=== PATIENT | female | born 1980 | race Hispanic/Latino ===

== ENCOUNTER 2017-11-30 10:18 | Emergency (ER) | payer MEDICAID ==
[~2017-11-30 10:18] MED LIST: BACL10TA PO; TRAM50TA4 PO
[2017-11-30] MEDS ORDERED: LIDOCAINE HCL 1% 20 ML VIAL ONE (10:53)
[2017-11-30] MEDS ORDERED: TETANUS/DIPHTHERIA TOXOID [ADULT] 0.5 ML VIAL IM ONE (11:58)
== END 2017-11-30 12:16 | disposition home or self-care (01) ==
LOC: EDH 10:18
DX: S61.512A Laceration without foreign body of left wrist, initial encounter (principal); Z72.0 Tobacco use; Z88.6 Allergy status to analgesic agent; Z98.890 Other specified postprocedural states; W26.8XXA Contact with other sharp object(s), not elsewhere classified, initial encounter; Y93.89 Activity, other specified; Y92.89 Other specified places as the place of occurrence of the external cause; Y99.8 Other external cause status
CPT/HCPCS: 12032; 12042; 73110; 90471; 90714

== ENCOUNTER 2019-05-15 19:00 | Observation (INO) | payer MEDICAID ==
[~2019-05-15] VITALS: Ht 165.1 cm; Wt 65.8 kg
[2019-05-15] MEDS ORDERED: LACTATED RINGERS 1000ML 1,000 ML IV PRN (19:30)
[2019-05-15 19:39] LABS: BILIRUBIN,URINE Negative (NEGATIVE); COLOR,URINE Dark Yellow (YELLOW); GLUCOSE, URINE (UA) Negative (NEGATIVE); KETONES,URINE Negative (NEGATIVE); LEUKOCYTE ESTERASE ,URINE Moderate (NEGATIVE); NITRATE,URINE Negative (NEGATIVE); OCCULT BLOOD,URINE Negative (NEGATIVE); PH,URINE 5.5 (5.0-8.0); PROTEIN,URINE Trace mg/dL (NEGATIVE)
[2019-05-15 19:46] LABS: APPEARANCE,URINE SLIGHTLY CLOUDY (CLEAR)
[2019-05-15 19:54] LABS: BACTERIA,URINE Few /HPF (None Seen); MUCUS,URINE Few LPF (None Seen); RBC,URINE 0-1 /HPF (0-1); SQUAMOUS EPITHELIAL CELL,UR Few /HPF (0-2)
[2019-05-15 20:05] VITALS: BP 104/70
[2019-05-15 22:13] LABS: AMPHET/METH SCREEN,URINE NEGATIVE (NEGATIVE); BARBITURATE SCREEN, URINE NEGATIVE (NEGATIVE); BENZODIAZEPINES SCREEN,URINE NEGATIVE (NEGATIVE); CANNABINOID SCREEN,URINE NEGATIVE (NEGATIVE); COCAINE SCREEN,URINE NEGATIVE (NEGATIVE); OPIATE SCREEN,URINE NEGATIVE (NEGATIVE); PHENCYCLIDINE SCREEN,URINE NEGATIVE (NEGATIVE)
== END 2019-05-16 09:50 | disposition home or self-care (01) ==
LOC: EDH 19:00 → LDH 19:26
PROVIDERS: ADMIT Obstetrics & Gynecology; ATTEND Obstetrics & Gynecology
DX: O26.893 Other specified pregnancy related conditions, third trimester (principal); R10.9 Unspecified abdominal pain; Z3A.34 34 weeks gestation of pregnancy; W18.30XA Fall on same level, unspecified, initial encounter; Y93.9 Activity, unspecified; Y92.9 Unspecified place or not applicable; Z88.6 Allergy status to analgesic agent
CPT/HCPCS: 76805; 80305; 81001; 99284; G0378 ×14; J7120 ×2; 96360; 96361

== ENCOUNTER 2019-06-14 22:25 | Observation (INO) | payer MEDICAID ==
[~2019-06-14] VITALS: Ht 165.1 cm; Wt 69.4 kg
[2019-06-14 23:03] LABS: APPEARANCE,URINE Cloudy (CLEAR); BILIRUBIN,URINE Small (NEGATIVE); COLOR,URINE Dark Yellow (YELLOW); GLUCOSE, URINE (UA) Negative (NEGATIVE); KETONES,URINE Negative (NEGATIVE); LEUKOCYTE ESTERASE ,URINE Small (NEGATIVE); NITRATE,URINE Negative (NEGATIVE); OCCULT BLOOD,URINE Negative (NEGATIVE); PH,URINE 5.5 (5.0-8.0); PROTEIN,URINE Trace mg/dL (NEGATIVE)
[2019-06-14 23:18] LABS: BACTERIA,URINE Few /HPF (None Seen); RBC,URINE 0-1 /HPF (0-1)
[2019-06-14 23:19] LABS: MUCUS,URINE Few LPF (None Seen); SQUAMOUS EPITHELIAL CELL,UR 0-2 /HPF (0-2)
[2019-06-14] MEDS ORDERED: LACTATED RINGERS 1000ML 1,000 ML IV PRN (23:43)
[2019-06-14] MEDS ORDERED: ACETAMINOPHEN-CODEINE 300/30MG TAB PO PRN (23:45)
[2019-06-14 23:46] VITALS: BP 130/83
[2019-06-15] MEDS: LACTATED RINGERS 1000ML IV PRN ×3 (00:02→06:51)
[2019-06-15] MEDS ORDERED: ACETAMINOPHEN-CODEINE 300/30MG TAB ONE (00:04)
[2019-06-15] MEDS ORDERED: AMPICILLIN 2GM+NS 100ML 100 ML IV ONE ×2 (00:52→01:00)
[2019-06-15] MEDS ORDERED: AMPICILLIN 1GM+NS 50ML 50 ML IV SCH (05:00)
[2019-06-19] MEDS ORDERED: [UNRECOGNIZED DRUG - CODE] PO (09:10)
[2019-06-19] MEDS ORDERED: TRAM100C3 PO (09:10)
== END 2019-06-15 11:05 | disposition home or self-care (01) ==
LOC: EDH 22:25 → LDH 22:26
PROVIDERS: ADMIT Obstetrics & Gynecology; ATTEND Obstetrics & Gynecology
DX: O62.9 Abnormality of forces of labor, unspecified (principal); O99.89 Other specified diseases and conditions complicating pregnancy, childbirth and the puerperium; M32.9 Systemic lupus erythematosus, unspecified; R53.82 Chronic fatigue, unspecified; Z88.6 Allergy status to analgesic agent; Z3A.38 38 weeks gestation of pregnancy
CPT/HCPCS: 76819; 81001; 96365; 96366; 99284; G0378 ×13; J0290 ×2; 96360; 96361

== ENCOUNTER 2019-06-19 03:49 | Inpatient (IN) | payer MEDICAID | END 2019-06-20 18:55 | disposition home or self-care (01) | LOC: EDH 03:49 → LDH 04:24 → WSH 08:35 | PROC: 10E0XZZ Delivery of Products of Conception, External Approach (ICD-10-PCS; principal; ~2019-06-19) | DX: O80 Encounter for full-term uncomplicated delivery (principal); Z37.0 Single live birth ==